=== PATIENT | female | born 1990 | race Caucasian/White ===

== ENCOUNTER 2018-12-31 16:50 | Emergency (ER) | payer BC ==
[~2018-12-31] VITALS: Ht 177.8 cm; Wt 72.6 kg
--- NOTE | 2018-12-31 16:50 | NUR ---
ED Nurse Note: Patient ambulated to ER from home due to medication refill. Patient is alert and oriented x4 and ambulatory. skin clean and intact. calm and cooperative. no acute distress noted at this time.
[2018-12-31 17:00] VITALS: BP 102/67
[2018-12-31] MEDS ORDERED: LEXAPRO20 MG ORAL (17:03)
--- NOTE | 2018-12-31 17:14 | Emergency Room Report ---
History of Present Illness General Chief Complaint: Medication Refill Source: Patient Present Illness HPI 28-year-old female presents to the emergency department requesting medication refill for Lexapro 10 mg. Patient reports she has been taking this medication daily for approximately 4 years. Patient states that she is currently 11 weeks and she has not been able to get an appointment with her psychiatrist or [employer] in a timely manner. Patient reports that she has been out of her medication for 3 days she states she has been taking it to manage generalized depression and anxiety symptoms. Patient denies SI or HI she denies manic episodes, previous suicide attempts or psychiatric hospitalizations. Patient states that her E[employer]OMECH[employer] EQUIPMENT TESTER has been approving this medication during her however she has to see him in office before he can write her a refill. She denies abdominal pain, cramping or vaginal bleeding. pt. is . Allergies: Coded Allergies: No Known Allergies (Unverified , 12/31/18) Patient History Last Menstrual Period: 10/15/18 Now: Yes - 11 WEEKS : 1 Para: 0 Nursing Documentation-[facility] Past Medical History: No Stated History History Of Psychiatric Problem: Yes - ANXIETY/DEPRESSION Review of Systems All Other Systems: negative except mentioned in HPI Physical Exam Vital Signs Date Time Temp Pulse Resp B/P (MAP) Pulse Ox O2 Delivery O2 Flow Rate FiO2 12/31/18 16:59 99.1 104 17 102/67 (79) 96 Room Air Sp02 EP Interpretation: reviewed, normal General Appearance: no apparent distress, alert, GCS 15, non-toxic Head: normocephalic, atraumatic Eyes: bilateral eye normal inspection, bilateral eye PERRL ENT: hearing grossly normal, normal voice Neck: full range of motion Respiratory: lungs clear, normal breath sounds, speaking full sentences Cardiovascular #1: regular rate, rhythm Musculoskeletal: gait/station normal, normal range of motion, non-tender Neurologic: alert, oriented x3, responsive, motor strength/tone normal, sensory intact, speech normal, grossly normal Psychiatric: normal inspection, judgement/insight normal, memory normal, mood/ affect normal, no suicidal/homicidal ideation, no delusions Skin: other - visible scars consistent with lacerations to the right UE at the shoulder region, no wrist laceration scars. Medical Decision Making PA Attestation Dr. Noguera Is my supervising Physician whom patient management has been discussed with. Diagnostic Impression: Primary Impression: Encounter for medication refill Additional Impression: Medication requested by patient but not prescribed or administered ER Course 28-year-old female presents to the emergency department requesting medication refill for Lexapro 10 mg. Patient reports she has been taking this medication daily for approximately 4 years. Patient states that she is currently 11 weeks and she has not been able to get an appointment with her psychiatrist or [employer] in a timely manner. Patient reports that she has been out of her medication for 3 days she states she has been taking it to manage generalized depression and anxiety symptoms. Patient denies SI or HI she denies manic episodes, previous suicide attempts or psychiatric hospitalizations. Patient states that her [employer] EQU[employer]MENT TESTER has been approving this medication during her however she has to see him in office before he can write her a refill. She denies abdominal pain, cramping or vaginal bleeding. pt. is . Ddx considered but are not limited to: drug seeking, OD, major depressive disorder, anxiety, SSRI w/d, complications just to name a few. Vital signs: are WNL, pt. is afebrile H&PE are most consistent with need for medication refill. ORDERS: none required at this time, the diagnosis is clinical ED INTERVENTIONS: None required at this time. I discussed with this patient that due to being and that this medication is advised against during I am not in the specialty of psychiatry where I feel comfortable prescribing outside of my scope of practice. Is with this patient that she should really have an ELECTROMECH[employer]ICAL EQUIPMENT TESTER on board and that I will give her [facility] urgent care resource information as this facility is open 24 hours and can safely prescribe this medication if they feel that the benefits outweigh the negative repercussions on her unborn child. Gave this patient multiple women's clinics resource information in case she is unable to see her E[employer]ROMECH[employer] EQUIPMENT TESTER as they may possibly be more appropriate for prescribing this medication during . -I do not identify an emergent condition at this time. With current presentation , pt. is stable for close outpatient follow up and conservative treatment. D/ w pt. to return promptly to ED with worsening or new symptoms.- Pt. verbalizes' understanding and agreement with proposed treatment plan.proposed treatment plan. DISCHARGE: At this time pt. is stable for d/c to home. Will provide printed patient care instructions, and any necessary prescriptions. Care plan and follow up instructions have been discussed with the patient prior to discharge. Last Vital Signs Date Time Temp Pulse Resp B/P (MAP) Pulse Ox O2 Delivery O2 Flow Rate FiO2 12/31/18 16:59 99.1 104 17 102/67 (79) 96 Room Air Disposition: HOME, SELF-CARE Condition: Stable Referrals: [facility] Patient Instructions: Medicine Refill at the Emergency Department Additional Instructions: Take any previously prescribed medications as directed if you still have any. Follow up with a Mental Health Specialist/ Psychiatrist within 3 days, even if your symptoms have resolved. --Please review [facility] resource information provided Return sooner to ED if new symptoms occur, or current symptoms become worse. - Please note that this Emergency Department Report was dictated using [employer] fire m[employer] technology software, occasionally this can lead to erroneous entry secondary to interpretation by the dictation equipment. Kathe Shah Dec 31, 2018 17:14
[2018-12-31 17:39] VITALS: BP 102/67
--- NOTE | 2018-12-31 17:40 | NUR ---
ER DISCHARGE NOTE: Patient is cleared to be discharged per ERPA, pt is aox4, on room air, with stable vital signs. pt was given dc and prescription instructions, pt was able to verbalize understanding, pt id band removed. pt is able to ambulate with steady gait. pt took all belongings.
== END 2018-12-31 17:40 | disposition home or self-care (01) ==
LOC: EMR 17:19
DX: Z76.0 Encounter for issue of repeat prescription (principal); O99.341 Other mental disorders complicating pregnancy, first trimester; F41.9 Anxiety disorder, unspecified; F32.9 Major depressive disorder, single episode, unspecified; Z3A.11 11 weeks gestation of pregnancy
CPT/HCPCS: 99281